=== PATIENT | female | born 1970 | race African-American/Black ===

== ENCOUNTER 2017-11-21 02:05 | Emergency (ER) | payer OTHER ==
[~2017-11-21] VITALS: Ht 154.9 cm; Wt 72.6 kg
[2017-11-21] MEDS ORDERED: SODIUM CHLORIDE 0.9% 1,000 ML IV ONE (04:30)
[2017-11-21 04:52] LABS: Basophils # (auto) 0.1 uL; Basophils % (auto) 1.5 % (0.0-2.0); Eosinophils # (auto) 0.1 uL; Eosinophils % (auto) 2.2 % (0.0-7.0); Hematocrit 38.1 % (36.0-46.0); Hemoglobin 12.7 g/dL (12.2-16.2); Lymphocytes # (auto) 1.6 uL; Lymphocytes % (auto) 25.6 % (10.0-50.0); Mean Corpuscular Hemoglobin 27.6 pg (28.0-32.0); Mean Corpuscular Hgb Conc. 33.2 g/dL (32.0-36.0); Mean Corpuscular Volume 83.1 fL (80.0-100.0); Monocytes # (auto) 0.6 uL; Monocytes % (auto) 9.4 % (0.0-12.0); Neutrophils # (auto) 3.9 uL; Neutrophils % (auto) 61.3 % (37.0-80.0); Platelet Count (auto) 316 10^3/uL (140-450); Red Blood Cells 4.59 10^6/uL (4.0-5.20); Red Cell Distribution Width 14.9 % (11.8-14.3); White Blood Cell 6.4 10^3/uL (4.4-10.8)
[2017-11-21 05:18] LABS: Albumin 3.3 g/dL (3.4-5.0); BUN/Creatinine Ratio 11.4; Bilirubin, Total 0.1 mg/dL (0.2-1.0); Potassium 4.4 mmol/L (3.5-5.1); Total Protein 6.8 g/dL (6.4-8.2)
[2017-11-21 07:35] VITALS: BP 130/85
== END 2017-11-21 07:48 | disposition home or self-care (01) ==
LOC: EDBD 02:05 → ER 02:16
DX: I10 Essential (primary) hypertension (principal); E11.9 Type 2 diabetes mellitus without complications; R42 Dizziness and giddiness; R53.1 Weakness; Z88.0 Allergy status to penicillin
CPT/HCPCS: 36415; 80053; 85025; 96360; 96361; 99285; J7030

== ENCOUNTER 2021-10-01 18:15 | Emergency (ER) | payer OTHER ==
[~2021-10-01] VITALS: Ht 154.9 cm; Wt 86.2 kg
[2021-10-01] MEDS ORDERED: cloNIDine HCL 0.1 MG TAB PO ONE (19:00)
[2021-10-01] MEDS ORDERED: ONDANSETRON ODT 4 MG TAB PO ONE (19:30)
[2021-10-01 21:28] LABS: Basophils # (auto) 0.1 10 ^3/uL (0-0.2); Basophils % (auto) 1.4 % (0.0-2.0); Eosinophils # (auto) 0.1 10 ^3/uL (0-0.8); Eosinophils % (auto) 0.8 % (0.0-7.0); Hematocrit 41.5 % (36.0-46.0); Lymphocytes # (auto) 1.7 10 ^3/uL (0.4-5.4); Lymphocytes % (auto) 21.6 % (10.0-50.0); Mean Corpuscular Hemoglobin 28.6 pg (28.0-32.0); Mean Corpuscular Hgb Conc. 33.8 g/dL (32.0-36.0); Mean Corpuscular Volume 84.8 fL (80.0-100.0); Monocytes # (auto) 0.4 10 ^3/uL (0-1.3); Monocytes % (auto) 5.5 % (0.0-12.0); Neutrophils # (auto) 5.6 10 ^3/uL (1.6-8.6); Neutrophils % (auto) 70.7 % (37.0-80.0); Nucleated Red Blood Cells % 0.2 %; Red Blood Cells 4.89 10^6/uL (4.0-5.20); Red Cell Distribution Width 14.4 % (11.8-14.3)
[2021-10-01 21:40] LABS: Albumin 3.8 g/dL (3.4-5.0); Calcium 9.2 mg/dL (8.5-10.1); Potassium 4.2 mmol/L (3.5-5.1)
[2021-10-01 21:42] LABS: BUN/Creatinine Ratio 11.1
[2021-10-01 21:45] LABS: Bilirubin, Total 0.3 mg/dL (0.2-1.0); Total Protein 6.9 g/dL (6.4-8.2)
[2021-10-01] MEDS ORDERED: ACETAMINOPHEN 500 MG TAB PO ONE (22:45)
[2021-10-01 23:27] VITALS: BP 141/55
== END 2021-10-01 23:28 | disposition left against medical advice (07) ==
LOC: EDBD 18:15 → ER 18:16
DX: I16.0 Hypertensive urgency (principal); R51.9 Headache, unspecified; R11.2 Nausea with vomiting, unspecified; E78.5 Hyperlipidemia, unspecified; F17.210 Nicotine dependence, cigarettes, uncomplicated; Z88.0 Allergy status to penicillin; Z20.822 Contact with and (suspected) exposure to COVID-19
CPT/HCPCS: 36415; 80053; 85025; 87426; 93005; 99284; Q0162

== ENCOUNTER 2025-03-13 14:31 | Inpatient (IN) | payer MEDICAID, OTHER, SELFPAY ==
[~2025-03-13] VITALS: Ht 154.9 cm; Wt 97.9 kg
--- NOTE | 2025-03-13 14:54 | ED.PDOC ---
SOB-HPI HPI Comments This is a 54 year old female presenting to the ED with chief complaint of SOB. Patient reports that she has been experiencing SOB with associated dizzy spells and right shoulder pain for the past 3 days. Patient relays that she recently quit cigarettes 2 months ago. Patient denies any chest pain, fever, chills, cough, N/V, headache, or hemoptysis. Time Seen by MD: 14:47 Primary Care Provider: YARI Reviewed notes: Nurses Notes, Medications, Allergies Information Source: Patient Mode of Arrival: Ambulatory Severity: Moderate Timing: Days Duration: Since onset Context: At Rest PE Risk Factors: None History of: None Prehospital treatment: None Modifying Factors: Nothing Associated Signs and Symptoms: None Past Medical History PAST MEDICAL HISTORY: High Lipids, HTN Past Medical History (Other): Prediabetes Surgical History: AIRPLANE TECHNICIAN History: Uterine Fibroids Family History Family History: Reviewed,noncontributory to illness, Family hx of DM, Family hx of Cancer Social History Smoker: Cigarettes Alcohol: Occasionally Drugs: Marijuana Lives In: Home Constitutional: denies: chills, diaphoresis, fatigue, fever, malaise, sweats, weakness, others EENTM: denies: blurred vision, double vision, ear bleeding, ear discharge, ear drainage, ear pain, ear ringing, eye pain, eye redness, hearing loss, mouth pain, mouth swelling, nasal discharge, nose bleeding, nose congestion, nose pain, photophobia, tearing, throat pain, throat swelling, voice changes, others Respiratory: reports: shortness of breath; denies: cough, hemoptysis, orthopnea, SOB at rest, SOB with excertion, stridor, wheezing, others Cardiovascular: reports: dizzy spells; denies: chest pain, diaphoresis, Dyspnea on exertion, edema, irregular heart beat, left arm pain, lightheadedness, palpitations, PND, syncope, others Gastrointestinal: denies: abdomen distended, abdominal pain, blood streaked bowels, constipated, diarrhea, dysphagia, difficulty swallowing, hematemesis, melena, nausea, poor appetite, poor fluid intake, rectal bleeding, rectal pain, vomiting, others Genitourinary: denies: abnormal vagina bleeding, burning, dyspareunia, dysuria, flank pain, frequency, hematuria, incontinence, pain, , vagina discharge, urgency, others Neurological: denies: dizziness, fainting, headache, left sided numbness, left sided weakness, numbness, paresthesia, pre-existing deficit, right sided numbness, right sided weakness, seizure, speech problems, tingling, tremors, weakness, others Musculoskeletal: reports: others (Rt shoulder pain); denies: back pain, gout, joint pain, joint swelling, muscle pain, muscle stiffness, neck pain Integumetry: denies: bruises, change in color, change in hair/nails, dryness, laceration, lesions, lumps, rash, wounds, others Allergic/Immunocompromised: denies: Difficulty Healing, Frequent Infections, Hives, Itching, others Hematologic/Lymphatic: denies: anemia, blood clots, easy bleeding, easy bruising, swollen glands, others Endocrine: denies: excessive hunger, excessive sweating, excessive thirst, excessive urination, flushing, intolerance to cold, intolerance to heat, unexplained weight gain, unexplained weight loss, others Psychiatric: denies: anxiety, bipolar disorder, depression, hopeless, panic disorder, schizophrenia, sleepless, suicidal, others All Other Systems: Reviewed and Negative Physical Exam General Appearance: Moderate Distress HEENT: Normal ENT Inspection, Pharynx Normal, TMs Normal Neck: Full Range of Motion, Non-Tender, Normal, Normal Inspection Respiratory: Chest Non-Tender, Decreased Breath Sounds, Lungs Clear, No Accessory Muscle Use, Respiratory Distress Cardiovascular: No Edema, No JVD, No Murmur, No Gallop, Normal Peripheral Pulses, Regular Rate/Rhythm Breast Exam: Deferred Gastrointestinal: No Organomegaly, Non Tender, No Pulsatile Mass, Normal Bowel Sounds, Soft Genitalia: Deferred Pelvic: Deferred Rectal: Deferred Extremities: No calf tenderness, Normal capillary refill, Normal inspection, Normal range of motion, Non-tender, No pedal edema Musculoskeletal : Apperance: Normal Neurologic: Alert, lime burner II-XII nml as Tested, No Motor Deficits, Normal Affect, Normal Mood, No Sensory Deficits Cerebellar Function: Normal Reflexes: Normal Skin: Dry, Normal Color, Warm Lymphatic: No Adenopathy Was a procedure done? Was a procedure done?: No Differential Dx Differential Diagnosis: Asthma, Bronchitis, CHF, Pneumonia X-Ray, Labs, Meds, VS Vital Signs Date Time Temp Pulse Resp B/P (MAP) Pulse Ox O2 Delivery O2 Flow Rate FiO2 03/13/25 15:14 78 03/13/25 14:48 97.8 87 18 123/92 (102) 99 97.8 Lab Test 03/13/25 15:38 03/13/25 15:08 03/13/25 14:27 Range/Units Troponin I High Sensitivity 3 L 3 L </=34 ng/L Urine Color Yellow Yellow Urine Clarity Turbid H Clear Urine pH 6.0 5.0-9.0 Urine Specific [place] 1.024 1.001-1.035 Urine Protein Trace H Negative Urine Ketones Negative Negative Urine Blood Negative Negative /uL Urine Nitrite Negative Negative Urine Bilirubin Negative Negative Urine Urobilinogen Normal Negative mg/dL Urine Leukocyte Esterase Negative Negative /uL Urine RBC 1 0 - 4 /hpf Urine Microscopic WBC 4 0-5 /HPF Urine Squamous Epithelial Cells Mod <5 /hpf Urine Bacteria Few H None Seen /hpf Urine Mucus Few None Seen Urine Glucose Normal Normal mg/dL White Blood Count 6.0 4.4-10.8 10^3/uL Red Blood Count 5.22 H 4.0-5.20 10^6/uL Hemoglobin 14.6 12.2-16.2 g/dL Hematocrit 42.5 36.0-46.0 % Mean Corpuscular Volume 81.4 80.0-100.0 fL Mean Corpuscular Hemoglobin 27.9 L 28.0-32.0 pg Mean Corpuscular Hemoglobin Concent 34.3 32.0-36.0 g/dL Red Cell Distribution Width 14.7 H 11.8-14.3 % Platelet Count 360 140-450 10^3/uL Mean Platelet Volume 8.2 6.9-10.8 fL Neutrophils (%) (Auto) 56.3 37.0-80.0 % Lymphocytes (%) (Auto) 32.4 10.0-50.0 % Monocytes (%) (Auto) 7.8 0.0-12.0 % Eosinophils (%) (Auto) 2.6 0.0-7.0 % Basophils (%) (Auto) 0.9 0.0-2.0 % Neutrophils # (Auto) 3.4 1.6-8.6 10 ^3/uL Lymphocytes # (Auto) 1.9 0.4-5.4 10 ^3/uL Monocytes # (Auto) 0.5 0-1.3 10 ^3/uL Eosinophils # (Auto) 0.2 0-0.8 10 ^3/uL Basophils # (Auto) 0.1 0-0.2 10 ^3/uL Nucleated Red Blood Cells 0.0 % D-Dimer, Quantitative < 0.19 0.0-0.49 mg/L FEU Sodium Level 143 136-145 mmol/L Potassium Level 2.9 L 3.5-5.1 mmol/L Chloride Level 100 98-107 mmol/L Carbon Dioxide Level 33 H 20-31 mmol/L Anion Gap 10 5-15 Blood Urea Nitrogen 9 9-23 mg/dL Creatinine 0.82 0.550-1.02 mg/dL Glomerular Filtration Rate Calc 85 >90 mL/min BUN/Creatinine Ratio 11.0 10.0-20.0 Serum Glucose 101 74-106 mg/dL Calcium Level 10.5 H 8.7-10.4 mg/dL The patient's CBC is within normal limits The patient's CBC is within normal limits The chemistry panel is within normal limits The D-dimer is negative The urine test is negative The chest x-ray shows pulmonary vascular congestion The patient was given Lasix 40 mg IV push The patient is being admitted at this time Images Reviewed?: Images reviewed and evaluated by me Time of 1ST Reevaluation: 18:11 Reevaluation 1ST: Unchanged Patient Education/Counseling: Diagnosis, Treatment, Prognosis Family Education/Counseling: No Family Present Additional Information Reviewed patient's previous visit(s): 10/01/21 for headache The following tests were ordered, and results were reviewed by me: CBC, BMP, Troponin, D-Dimer, EKG, Chest XR Additional information was gathered from interviewing the following independent historian: None I reviewed and agreed with the following test results read by other provider: Chest XR I discussed treatments and results with medical personnel and: PATIENT Comprehensive systems review obtained and negative except for what is stated in the HPI. SEPSIS Sepsis Screen Physician Orders Chest Two Views Routine (03/13/25 14:43) Electrocardigram (03/13/25 17:43) Heplock Iv (03/13/25 16:33) Vital Signs Date Time Temp Pulse Resp B/P (MAP) Pulse Ox O2 Delivery O2 Flow Rate FiO2 03/13/25 15:14 78 03/13/25 14:48 97.8 87 18 123/92 (102) 99 97.8 Laboratory Tests Test 03/13/25 14:27 White Blood Count 6.0 10^3/uL (4.4-10.8) Departure 1 Departure Time of Disposition: 18:10 Impression: Primary Impression: Pulmonary vascular congestion Additional Impression: Shortness of breath Disposition: 09 ADMITTED INPATIENT Admit to: Tele Condition: Fair Critical Care Note Critical Care Time?: Yes (35 min-critical care time only) Stability Stability form required: Yes Unstable for transfer: Telemetry monitoring (Telemetry monitoring required), ED Physician Assesment (Clinical assesment) Heart Score Heart Score: Heart Score Response (Comments) Value History N/A 0 EKG N/A 0 Age N/A 0 Risk Factors N/A 0 Troponin N/A 0 Total 0 I personally scribed for CHANDU MUELLER MD ([email or web address]) on 03/13/25 at 14:54. Electronically submitted by Baldev Guardado ([email or web address]). CHANDU MUELLER MD Mar 13, 2025 14:54
[2025-03-13 15:12] LABS: Basophils # (auto) 0.1 10 ^3/uL (0-0.2); Basophils % (auto) 0.9 % (0.0-2.0); Eosinophils # (auto) 0.2 10 ^3/uL (0-0.8); Eosinophils % (auto) 2.6 % (0.0-7.0); Hematocrit 42.5 % (36.0-46.0); Hemoglobin 14.6 g/dL (12.2-16.2); Lymphocytes # (auto) 1.9 10 ^3/uL (0.4-5.4); Lymphocytes % (auto) 32.4 % (10.0-50.0); Mean Corpuscular Hemoglobin 27.9 pg (28.0-32.0); Mean Corpuscular Hgb Conc. 34.3 g/dL (32.0-36.0); Mean Corpuscular Volume 81.4 fL (80.0-100.0); Monocytes # (auto) 0.5 10 ^3/uL (0-1.3); Monocytes % (auto) 7.8 % (0.0-12.0); Neutrophils # (auto) 3.4 10 ^3/uL (1.6-8.6); Neutrophils % (auto) 56.3 % (37.0-80.0); Platelet Count (auto) 360 10^3/uL (140-450); Red Blood Cells 5.22 10^6/uL (4.0-5.20); Red Cell Distribution Width 14.7 % (11.8-14.3)
--- NOTE | 2025-03-13 15:14 | DVH ---
CHEST RADIOGRAPH Indication: sob Technique: 2 views of the chest COMPARISON: None FINDINGS: The cardiac silhouette is unremarkable. The lungs demonstrate no pulmonary airspace consolidation. Th e pulmonary vasculature is prominent. There is no pleural effusion.. There is no pneumothorax. IMPRESSION: Mild pulmonary vascular congestion
--- NOTE | 2025-03-13 15:15 | ECG ---
[facility] Test Date: 2025-03-13 Test Time: 15:14:29 Pat Name: NICOLE THOMPSON Department: ER Room: [address] [place] [address] Gender: F Oracle Etl Developer: ANNABEL : 1970 Requested By: CHANDU MUELLER Order Number: [id number] Reading MD: Israel Chavez Measurements Intervals [place] Rate: 78 P: 67 AK: 133 QRS: 75 QRSD: 88 T: 30 QT: 383 QTc: 437 Interpretive Statements Sinus rhythm Electronically Signed On 03-16-2025 20:00:16 PDT by Israel Chavez Please click the below link to view image of tracing.
[2025-03-13 15:19] LABS: Chloride 100 mmol/L (98-107); Sodium 143 mmol/L (136-145)
[2025-03-13 15:20] LABS: Anion Gap 10 (5-15)
[2025-03-13 15:21] LABS: Calcium 10.5 mg/dL (8.7-10.4); Carbon Dioxide 33 mmol/L (20-31); Potassium 2.9 mmol/L (3.5-5.1)
[2025-03-13 15:25] LABS: Blood Urea Nitrogen 9 mg/dL (9-23); Glucose 101 mg/dL (74-106)
[2025-03-13 16:09] LABS: Urine Bacteria FEW /hpf (None Seen); Urine Blood Negative /uL (Negative); Urine Clarity Turbid (Clear); Urine Color Yellow (Yellow); Urine Mucus FEW (None Seen); Urine Protein, UAD TRACE (Negative); Urine Specific Gravity 1.024 (1.001-1.035); Urine Squamous Epithelial Cell MOD /hpf (<5); Urine Urobilinogen Normal (Negative); Urine WBC 4 /HPF (0-5)
--- NOTE | 2025-03-13 16:27 | ECG ---
[facility] Test Date: 2025-03-13 Test Time: 15:19:28 Pat Name: NICOLE THOMPSON Department: ER Room: [address] [place] [address] Gender: F Crew Leader/Control Room Operator: ANNABEL : 1970 Requested By: CHANDU MUELLER Order Number: [id number] Reading MD: Israel Chavez Measurements Intervals [place] Rate: 87 P: 75 AR: 152 QRS: 71 QRSD: 89 T: 34 QT: 352 QTc: 424 Interpretive Statements Sinus rhythm Right atrial enlargement Abnormal R-wave progression, early transition Electronically Signed On 03-16-2025 20:00:35 PDT by Israel Chavez Please click the below link to view image of tracing.
[2025-03-13] MEDS: FUROSEMIDE 40 MG/4 ML VIAL IV ONE (20:35)
[2025-03-13] MEDS: POTASSIUM CHL 20MEQ/100ML 100 ML IV ONE (21:00)
[2025-03-13] MEDS: POTASSIUM CHL 20 Meq TABLET PO ONE (21:15)
[2025-03-13] MEDS: hydrALAZINE HCL 20 MG/ML VL IV ONE (22:15)
[2025-03-13] MEDS: LOSARTAN POTASSIUM 50 MG TAB PO ONE (22:15)
[2025-03-13] MEDS ORDERED: MORPHINE SULFATE INJ 2 MG/ml SYRG IV PRN (22:15)
[2025-03-13] MEDS ORDERED: NITROGLYCERIN 0.4 MG SL TAB SL PRN (22:15)
--- NOTE | 2025-03-13 22:53 | DVH ---
EXAM: CT HEAD WITHOUT CONTRAST INDICATION: r/o acute stroke TECHNIQUE: CT of the head without intravenous contrast. Radiation Dose : 1. Head: CT Dose: CTDI volume is 59 mGy. Dose-length product is 1169 mGy*cm The dose indicators for CT are the volume Computed Tomography (CT) Dose Index (CTDIvol) and the Dose Length Product (DLP), and are measured in units of mGy and mGy-cm, respectively. These indicators are not patient dose, but values generated from the CT scanner acquisition factors. The report includes radiation exposure data for exposures received during this examination. COMPARISON: None FINDINGS: There is no evidence of acute intracranial hemorrhage, extra-axial collection, mass effect, midline s hift, herniation or hydrocephalus. The ventricles, sulci and cisterns are age appropriate. The ordonez-white differentiation is intact. Patchy periventricular and subcortical white matter hypoattenuation is nonspecific but may be related to small vessel ischemic disease. The visualized paranasal sinuses and mastoid air cells are clear. The surrounding soft tissues and osseous structures are unremarkable. IMPRESSION: 1. No acute intracranial abnormality. Radiation optimization: All CT scans at this facility use at least one of these dose optimization mauri hniques: automated exposure control mA and/or kV adjustment per patient size (includes targeted exam s where dose is matched to clinical indication) or iterative reconstruction.
[2025-03-13 23:41] LABS: Protein, Urine 31.6 mg/dL (1-14)
[2025-03-13 23:43] LABS: Amphetamine Screen, Urine Neg (NEGATIVE)
[2025-03-13 23:44] LABS: Cannabinoid Screen, Urine Pos (NEGATIVE)
[2025-03-13 23:48] LABS: Barbiturate Scree,Urine Neg (NEGATIVE); Benzodiazephine Screen, Urine Neg (NEGATIVE); Cocaine Screen, Urine Neg (NEGATIVE); Opiate Scree,Urine Neg (NEGATIVE); Phencyclidine Screen, Urine Neg (NEGATIVE)
[2025-03-13 23:52] LABS: Urine Protein/Creatinine Ratio 0.11
[2025-03-13 23:57] LABS: Creatinine, Urine 289.75 mg/dL (30.0-125.0)
[2025-03-14] VITALS (10 sets, daily range): BP systolic 106–170; BP diastolic 45–85; PULSE 56–74; RESP 16–18; TEMP 97.2–98.2; O2SAT 96–100
[2025-03-14] MEDS ORDERED: hydrALAZINE HCL 20 MG/ML VL IV PRN (01:45)
--- NOTE | 2025-03-14 01:48 | DVHHPRES ---
History of Present Illness Resident Creating Document: JHAJFABIAN BermudezCONY RESIDENT History of Present Illness Patient is a 54-year-old female with a past medical history of hypertension presented to the ED with a chief complaint of worsening dizziness for the last 3 days. Patient reported that since the last 3-4 days has worsening episode of dizziness whenever she gets up from the lying down position to standing with a sensation of room spinning. Patient also reported shortness of breath in the last 3 days but denied any orthopnea. Patient snores at night. Patient denied any chest pain, headache, blurred vision while at home. Patient reports that he was diagnosed with a hypertension after the delivery of her daughter in 2005. On admission patient's blood pressure within normal limits. Orthostatic vitals did not show orthostatic hypotension. Initial ECG showed sinus rhythm without any significant ST or T-wave changes. Troponin levels were within normal limits Past medical history: Hypertension Surgical history: x2 Social history: Patient has a history of smoking 4-5 cigarettes with the last 18-20 years, occasional alcohol use, smokes marijuana every night before sleeping Family history: Multiple family members with hypertension but denied any history of coronary artery disease or ND Home medications: Amlodipine 5 mg, metoprolol tartrate 50 b.i.d., losartan 50 mg, hydrochlorothiazide 25 mg Review of Systems Review of Systems Patient seen and examined at the bedside Reports of dizziness when she gets up from the sitting position Denies headache, chest pain, shortness of breath Allergies: Coded Allergies: Penicillins (Verified Allergy, Unknown, 11/21/17) Medications Current Medications Medications Dose Ordered Sig/Angelica Route Start Time Stop Time Status Last Admin Dose Admin Nitroglycerin 0.4 mg Q5MINP PRN SL 03/13/25 22:15 Morphine Sulfate 2 mg Q30M PRN IV 03/13/25 22:15 Amlodipine Besylate 5 mg DAILY PO 03/14/25 10:00 Losartan Potassium 50 mg DAILY PO 03/14/25 10:00 Hydrochlorothiazide 25 mg DAILY PO 03/14/25 10:00 Exam Vital Signs Vital Signs Date Time Temp Pulse Resp B/P (MAP) Pulse Ox O2 Delivery O2 Flow Rate FiO2 03/14/25 00:43 97.7 60 18 170/85 (113) 99 97.7 03/13/25 20:10 Room Air* 0 21 Exam Gen - no pallor, no icterus, no cyanosis, no clubbing, no LAD, no edema . Skin - Patients skin is warm and dry. HEENT - normocephalic, atraumatic, moist mucous membranes. Neck - full ROM, no LAD, no JVD Pulmonary - B/L equal breath sounds, no crackles, no wheezing, no stridor. cardiovascular - regular S1,S2 heard, no added sounds, no murmurs heard. peripheral pulses normal radial 2+, pedal 2+. capillary refill normal <2 secs. GI - soft, nontender abdomen. no hepatospleenomegaly. Bowel sounds normoactive Neurological - Patient is A/O X 3 . Bilateral upper extremity strength 5/5, bilateral lower extremity strength 5/5, no facial droop, normal speech, no tremor, no sensory deficiets. Labs/Xrays Labs Test 03/13/25 15:38 03/13/25 15:08 03/13/25 14:27 Range/Units Troponin I High Sensitivity 3 L </=34 ng/L Urine Color Yellow Yellow Urine Clarity Turbid H Clear Urine pH 6.0 5.0-9.0 Urine Specific [place] 1.024 1.001-1.035 Urine Protein Trace H Negative Urine Ketones Negative Negative Urine Blood Negative Negative /uL Urine Nitrite Negative Negative Urine Bilirubin Negative Negative Urine Urobilinogen Normal Negative mg/dL Urine Leukocyte Esterase Negative Negative /uL Urine RBC 1 0 - 4 /hpf Urine Microscopic WBC 4 0-5 /HPF Urine Squamous Epithelial Cells Mod <5 /hpf Urine Bacteria Few H None Seen /hpf Urine Mucus Few None Seen Urine Creatinine 289.75 H 30.0-125.0 mg/dL Urine Protein/Creatinine Ratio 0.11 Urine Glucose Normal Normal mg/dL Urine Total Protein 31.6 H 1-14 mg/dL Urine Test Negative Negative Urine Opiates Screen Neg NEGATIVE Urine Fentanyl Screen Neg NEGATIVE Urine Barbiturates Screen Neg NEGATIVE Urine Phencyclidine Screen Neg NEGATIVE Urine Amphetamines Screen Neg NEGATIVE Urine Benzodiazepines Screen Neg NEGATIVE Urine Cocaine Screen Neg NEGATIVE Urine Cannabinoids Screen Pos NEGATIVE White Blood Count 6.0 4.4-10.8 10^3/uL Red Blood Count 5.22 H 4.0-5.20 10^6/uL Hemoglobin 14.6 12.2-16.2 g/dL Hematocrit 42.5 36.0-46.0 % Mean Corpuscular Volume 81.4 80.0-100.0 fL Mean Corpuscular Hemoglobin 27.9 L 28.0-32.0 pg Mean Corpuscular Hemoglobin Concent 34.3 32.0-36.0 g/dL Red Cell Distribution Width 14.7 H 11.8-14.3 % Platelet Count 360 140-450 10^3/uL Mean Platelet Volume 8.2 6.9-10.8 fL Neutrophils (%) (Auto) 56.3 37.0-80.0 % Lymphocytes (%) (Auto) 32.4 10.0-50.0 % Monocytes (%) (Auto) 7.8 0.0-12.0 % Eosinophils (%) (Auto) 2.6 0.0-7.0 % Basophils (%) (Auto) 0.9 0.0-2.0 % Neutrophils # (Auto) 3.4 1.6-8.6 10 ^3/uL Lymphocytes # (Auto) 1.9 0.4-5.4 10 ^3/uL Monocytes # (Auto) 0.5 0-1.3 10 ^3/uL Eosinophils # (Auto) 0.2 0-0.8 10 ^3/uL Basophils # (Auto) 0.1 0-0.2 10 ^3/uL Nucleated Red Blood Cells 0.0 % D-Dimer, Quantitative < 0.19 0.0-0.49 mg/L FEU Sodium Level 143 136-145 mmol/L Potassium Level 2.9 L 3.5-5.1 mmol/L Chloride Level 100 98-107 mmol/L Carbon Dioxide Level 33 H 20-31 mmol/L Anion Gap 10 5-15 Blood Urea Nitrogen 9 9-23 mg/dL Creatinine 0.82 0.550-1.02 mg/dL Glomerular Filtration Rate Calc 85 >90 mL/min BUN/Creatinine Ratio 11.0 10.0-20.0 Serum Glucose 101 74-106 mg/dL Calcium Level 10.5 H 8.7-10.4 mg/dL Assessment/Plan Assessment/Plan Dizziness Rule out acute stroke Possible BPPV Possible Orthostatic hypotension - head CT without contrast shows no acute intracranial abnormality - carotid Doppler pending Uncontrolled hypertension Rule out secondary causes of hypertension - renal arterial Doppler pending - cortisol a.m. levels - possible sleep apnea, stop Bang score 4-5 points - continued on amlodipine, losartan, hydrochlorothiazide - hydralazine PRN Hypokalemia Proteinurea likely from underlying hypertensive nephropathy - protein to creatinine ratio normal - monitor kidney function - potassium replaced PUD prophylaxis: Famotidine Goals of care discussed with the patient for over 19 minutes. Full code Time spent: 37 minute Plan discussed with Dr. Lieberman Plan discussed with: Patient My Orders Orders - JAM LARA RESIDENT Procedure Category Date Status Time Admit ADMIT 03/13/25 Transmitted 22:04 Nitroglycerin PHA 03/13/25 In Process Sublingual (Ntrostat 22:15 Morphine Sulfate PHA 03/13/25 In Process Injection 22:15 Oxygen By Nasal RT 03/13/25 Transmitted Cannula 22:04 Stat Ekg For Chest ELI 03/13/25 In Process Pain 22:04 Notify Md Of Changes ELI 03/13/25 In Process From Base 22:04 Quality Lead For ELI 03/13/25 In Process 24 Hours 22:04 Emergency Dysrhythmia ELI 03/13/25 In Process Protocol 22:[address] 03/13/25 Resulted 22:04 Amlodipine Tablet PHA 03/14/25 In Process (Norvasc Tablet) 10:00 Losartan Tablet PHA 03/14/25 In Process (Cozaar Tablet) 10:00 Hydrochlorothiazide PHA 03/14/25 In Process Tablet (Hydrochlorot 10:00 Echo 2d Mode Cardiac US 03/13/25 Logged DOP 22:04 Renal Artery Lmtd US 03/13/25 Taken 22:04 Cortisol Am LAB 03/14/25 Logged 08:00 Complete Blood Count LAB 03/14/25 Logged 04:00 Comprehensive LAB 03/14/25 Logged Metabolic Panel 04:00 Carotid Duplx W Color US 03/13/25 Taken DOP 22:04 Cardiac DIET 03/14/25 Transmitted Diet-2gna,Lofat,Lochol Breakfast Date of Service: Mar 13, 2025 Billing Provider: ALY LIEBERMAN MD Common Visit Codes: 26441-[id number] INP/OBS CARE (HIGH) Secondary Visit Codes: [id number]-[id number] CARE PLAN 30 MINUTES JAM LARA RESIDENT Mar 14, 2025 01:48
--- NOTE | 2025-03-14 05:06 | DVH ---
Carotid Duplex Clinical History: R/o carotid stenosis Comparison: None Technique: Duplex Doppler evaluation of the extracranial carotid and vertebral arteries including color Doppler and spectral/pulsed waveform analysis was performed. Findings: RIGHT SIDE: The peak systolic velocities are 61 cm/s in the CCA, 89 cm/s in the ICA. The ICA/CCA ratio is 1.4. The external carotid artery is patent with peak systolic velocity of 132 cm/s proximally. The subclavian artery is patent with peak systolic velocity of n/a cm/s. There is appropriate antegrade flow in the right vertebral artery. LEFT SIDE: The peak systolic velocities are 79 cm/s in the CCA, 116 cm/s in the ICA. The ICA/CCA ratio is 1.5. The external carotid artery is patent with peak systolic velocity of 89 cm/s proximally. The subclavian artery is patent with peak systolic velocity of n/a cm/s. There is appropriate antegrade flow in the left vertebral artery. IMPRESSION: No hemodynamically significant stenosis noted in the right carotid system. No hemodynamically significant stenosis noted in the left carotid system. Reference: Radiology 2003; 229:340-346 Normal ICA PSV is <125 cm/sec and no plaque or intimal thickening is visible sonographically addition al criteria include ICA/CCA PSV ratio <2.0 and ICA EDV <40 cm/sec <50% ICA stenosis ICA PSV is <125 cm/sec and plaque or intimal thickening is visible sonographically additional criteria include ICA/CCA PSV ratio <2.0 and ICA EDV <40 cm/sec 50-69% ICA stenosis ICA PSV is 125-230 cm/sec and plaque is visible sonographically additional criter ia include ICA/CCA PSV ratio of 2.0-4.0 and ICA EDV of 40-100 cm/sec 70% ICA stenosis but less than near occlusion ICA PSV is >230 cm/sec and visible plaque and luminal narrowing are seen at ordonez-scale and color Doppler ultrasound (the higher the Doppler parameters lie above the threshold of 230 cm/sec, the greater the likelihood of severe disease) additional criteria include ICA/CCA PSV ratio >4 and ICA EDV >100 cm/sec
--- NOTE | 2025-03-14 05:08 | DVH ---
INDICATION: r/o renal artery stenosis, B/L TECHNIQUE: Multiple real-time sonographic images of the kidneys and bladder were obtained. Duplex Doppler evaluation including color Doppler and spectral/pulsed waveform analysis of the bilate ral renal arteries was performed. COMPARISON: None FINDINGS: The right kidney measures 10.3 cm in length. The right renal echogenicity, contour and cortical thick ness are within normal limits. No hydronephrosis or large masses/calculi are seen. The left kidney measures 10.6 cm in length. The left renal echogenicity, contour, and cortical thickn ess are within normal limits. No hydronephrosis or large masses/calculi are seen. Aorta peak systolic velocity, 27 cm/s Right renal artery peak systolic velocity, 83 cm/s (< 180 cm/s = normal). Left renal artery peak systolic velocity 80 cm/s (< 180 cm/s = normal). Right RAR : 3.1 (< 3.5, normal) Left RAR 2.9 (< 3.5, normal) Right RI: 0.7 (< 0.75, normal) Left RI: 0.6 (< 0.75, normal) IMPRESSION: No findings to suggest renal artery stenosis. *Jennifer Mason Techniques in Noninvasive Vascular Diagnosis 2001
[2025-03-14 08:11] LABS: Basophils # (auto) 0.1 10 ^3/uL (0-0.2); Eosinophils # (auto) 0.2 10 ^3/uL (0-0.8); Eosinophils % (auto) 3.2 % (0.0-7.0); Hematocrit 40.4 % (36.0-46.0); Hemoglobin 13.8 g/dL (12.2-16.2); Lymphocytes # (auto) 2.3 10 ^3/uL (0.4-5.4); Lymphocytes % (auto) 34.6 % (10.0-50.0); Mean Corpuscular Hemoglobin 28.9 pg (28.0-32.0); Mean Corpuscular Hgb Conc. 34.3 g/dL (32.0-36.0); Mean Corpuscular Volume 84.3 fL (80.0-100.0); Monocytes # (auto) 0.6 10 ^3/uL (0-1.3); Monocytes % (auto) 8.5 % (0.0-12.0); Neutrophils # (auto) 3.5 10 ^3/uL (1.6-8.6); Neutrophils % (auto) 52.7 % (37.0-80.0); Nucleated Red Blood Cells % 0.1 %; Platelet Count (auto) 191 10^3/uL (140-450); Red Blood Cells 4.79 10^6/uL (4.0-5.20); Red Cell Distribution Width 14.6 % (11.8-14.3); White Blood Cell 6.7 10^3/uL (4.4-10.8)
[2025-03-14 08:23] LABS: Alanine Aminotransferase 11 U/L (7-40); Albumin 4.2 g/dL (3.2-4.8); Alkaline Phosphatase 86 U/L (46-116); Anion Gap 10 (5-15); Aspartate Aminotransferase 11 U/L (<34); BUN/Creatinine Ratio 15.1 (10.0-20.0); Blood Urea Nitrogen 11 mg/dL (9-23); Carbon Dioxide 29 mmol/L (20-31); Chloride 102 mmol/L (98-107); Glucose 91 mg/dL (74-106); Sodium 141 mmol/L (136-145); Total Protein 6.1 g/dL (5.7-8.2)
[2025-03-14 08:24] LABS: Bilirubin, Total 0.3 mg/dL (0.2-1.0); Potassium 3.3 mmol/L (3.5-5.1)
[2025-03-14] MEDS: FAMOTIDINE 20 MG TAB PO SCH (08:52)
[2025-03-14] MEDS: LOSARTAN POTASSIUM 50 MG TAB PO SCH (08:52)
[2025-03-14] MEDS: amLODIPine BESYLATE 5 MG TAB PO SCH (08:53)
[2025-03-14] MEDS: hydroCHLOROthiazide 25 MG TAB PO SCH (08:53)
--- NOTE | 2025-03-14 14:30 | DVHPN2 ---
Subjective Continues having dizziness only with standing. Otherwise doing well. Reviewed: H&P Changes from previous H/P or p: No Changes General: Per HPI Objective Vitals Vital Signs Date Time Temp Pulse Resp B/P (MAP) Pulse Ox O2 Delivery O2 Flow Rate FiO2 03/14/25 13:46 97.2 65 18 137/71 (93) 99 97.2 03/14/25 02:59 Room Air* 0 21 Intake/Output Intake and Output 03/14/25 06:59 Intake Total 500 ml Balance 500 ml Intake Oral 500 ml Exam GEN: Healthy appearing, well-developed, NAD. HEENT: NC/AT; MMM. CV: RRR, no m/r/g. LUNGS: CTAB, no w/r/c. ABD: Soft, NT/ND, NBS, no masses or organomegaly. EXT: skin Warm, well perfused. no rashes. No clubbing, cyanosis, or edema. NEURO: Ambulating with no limitations. No focal deficits. Medications Current Medications Medications Dose Ordered Sig/Angelica Route Start Time Stop Time Status Last Admin Dose Admin Nitroglycerin 0.4 mg Q5MINP PRN SL 03/13/25 22:15 Morphine Sulfate 2 mg Q30M PRN IV 03/13/25 22:15 Amlodipine Besylate 5 mg DAILY PO 03/14/25 10:00 03/14/25 08:53 5 MG Losartan Potassium 50 mg DAILY PO 03/14/25 10:00 03/14/25 08:52 50 MG Hydrochlorothiazide 25 mg DAILY PO 03/14/25 10:00 03/14/25 08:53 25 MG Hydralazine HCl 10 mg Q6HP PRN IV 03/14/25 01:45 Famotidine 20 mg DAILY PO 03/14/25 10:00 03/14/25 08:52 20 MG Laboratory Results Laboratory Tests 03/14/25 07:29 Chemistry Test 03/14/25 07:29 Albumin 4.2 g/dL (3.2-4.8) Calcium Level 10.0 mg/dL (8.7-10.4) Total Protein 6.1 g/dL (5.7-8.2) LFT Test 03/14/25 07:29 Alanine Aminotransferase (ALT) 11 U/L (7-40) Alkaline Phosphatase 86 U/L (46-116) Aspartate Amino Transferase (AST) 11 U/L (<34) Total Bilirubin 0.3 mg/dL (0.2-1.0) Urinalysis Test 03/13/25 15:08 Urine Color Yellow (Yellow) Urine Clarity Turbid (Clear) H Urine pH 6.0 (5.0-9.0) Urine Specific [place] 1.024 (1.001-1.035) Urine Protein Trace (Negative) H Urine Ketones Negative (Negative) Urine Blood Negative /uL (Negative) Urine Nitrite Negative (Negative) Urine Bilirubin Negative (Negative) Urine Urobilinogen Normal mg/dL (Negative) Urine Leukocyte Esterase Negative /uL (Negative) Urine RBC 1 /hpf (0 - 4) Urine Microscopic WBC 4 /HPF (0-5) Urine Squamous Epithelial Cells Mod /hpf (<5) Urine Bacteria Few /hpf (None Seen) H Urine Mucus Few (None Seen) Urine Creatinine 289.75 mg/dL (30.0-125.0) H Urine Protein/Creatinine Ratio 0.11 Urine Glucose Normal mg/dL (Normal) Urine Total Protein 31.6 mg/dL (1-14) H Urine Test Negative (Negative) Labs and/or images reviewed: Labs reviewed by me, Image(s) reviewed by me Assessment/Plan Assessment/Plan 03/14 patient is still dizzy. Although looks comfortable resting. Her dizziness occurs when she stands up from resting. She has some hypokalemia and orthostatics are negative. We will continue neuro checks but is appearing less likely CVA. Patient takes multiple blood pressure medications in the home including losartan, metoprolol, hydrochlorothiazide, amlodipine,. There is concern for iatrogenic polypharmacy Presyncope, likely autonomic dysfunction dizziness due to above Orthostatic hypotension possible Peripheral vertigo possible Uncontrolled hypertension Hypokalemia Hypokalemia hypertension syndrome - continue home medications amlodipine, famotidine, hydrochlorothiazide, losartan - patient also takes metoprolol which we will holding right now - orthostatic hypotension test - telemetry - echocardiogram, - maintenance IV fluids Cardiac diet GI prophylaxis-tolerating p.o. DVT prophylaxis-ambulating Tele Full code Plan discussed with: Patient My Orders Orders - ÁNGEL VILLAREAL MD Procedure Category Date Status Time Potassium Effervesent PHA 03/14/25 Logged Tab (Klor-Con/Ef) 14:30 Date of Service: Mar 14, 2025 Billing Provider: ÁNGEL VILLAREAL MD Common Visit Codes: [id number] INP/OBS CARE(HIGH) ÁNGEL VILLAREAL MD Mar 14, 2025 14:30
[2025-03-14] MEDS: POTASSIUM EFFERVESENT TAB 25 MEQ PO ONE (15:32)
[2025-03-14] MEDS: IBUPROFEN 600 MG TAB PO PRN (16:40)
[2025-03-14] MEDS: diphenhdrAMINE HCL 25 MG CAP PO ONE (16:40)
[2025-03-15] VITALS (10 sets, daily range): BP systolic 111–150; BP diastolic 70–90; PULSE 64–112; RESP 17–18; TEMP 97.4–98.7; O2SAT 96–100
[2025-03-15 09:05] LABS: Chloride 101 mmol/L (98-107); Sodium 140 mmol/L (136-145)
[2025-03-15 09:06] LABS: Anion Gap 8 (5-15); Calcium 10.1 mg/dL (8.7-10.4); Carbon Dioxide 31 mmol/L (20-31)
[2025-03-15 09:11] LABS: BUN/Creatinine Ratio 12.5 (10.0-20.0); Blood Urea Nitrogen 9 mg/dL (9-23); Glucose 100 mg/dL (74-106)
[2025-03-15 09:17] LABS: Potassium 3.3 mmol/L (3.5-5.1)
[2025-03-15] MEDS: MECLIZINE HCL 25 MG TAB PO PRN (14:47)
[2025-03-15] MEDS: diphenhdrAMINE HCL 25 MG CAP PO PRN (14:47)
[2025-03-15] MEDS: POTASSIUM EFFERVESENT TAB 25 MEQ PO ONE (15:15)
--- NOTE | 2025-03-15 22:59 | DVHPN2 ---
Subjective Continues having dizziness only with standing. Otherwise doing well. Reviewed: H&P Changes from previous H/P or p: No Changes General: Per HPI Objective Vitals Vital Signs Date Time Temp Pulse Resp B/P (MAP) Pulse Ox O2 Delivery O2 Flow Rate FiO2 03/15/25 21:00 97.8 92 18 129/78 (95) 99 97.8 03/15/25 08:08 Room Air* 0 21 Intake/Output Intake and Output 03/15/25 07:00 Intake Total 600 ml Balance 600 ml Intake Oral 600 ml # Voids 1 Exam GEN: Healthy appearing, well-developed, NAD. HEENT: NC/AT; MMM. CV: RRR, no m/r/g. LUNGS: CTAB, no w/r/c. ABD: Soft, NT/ND, NBS, no masses or organomegaly. EXT: skin Warm, well perfused. no rashes. No clubbing, cyanosis, or edema. NEURO: Ambulating with no limitations. No focal deficits. [place]-Hallpike positive for left Medications Current Medications Medications Dose Ordered Sig/Angelica Route Start Time Stop Time Status Last Admin Dose Admin Nitroglycerin 0.4 mg Q5MINP PRN SL 03/13/25 22:15 Morphine Sulfate 2 mg Q30M PRN IV 03/13/25 22:15 Amlodipine Besylate 5 mg DAILY PO 03/14/25 10:00 03/15/25 09:23 5 MG Losartan Potassium 50 mg DAILY PO 03/14/25 10:00 03/15/25 09:23 50 MG Hydrochlorothiazide 25 mg DAILY PO 03/14/25 10:00 03/15/25 09:24 25 MG Hydralazine HCl 10 mg Q6HP PRN IV 03/14/25 01:45 Famotidine 20 mg DAILY PO 03/14/25 10:00 03/15/25 09:22 20 MG Ibuprofen 600 mg [id number] PRN PO 03/14/25 16:30 03/15/25 22:54 600 MG Meclizine HCl 25 mg Q6HPRN PRN PO 03/15/25 14:15 03/15/25 14:47 25 MG Diphenhydramine HCl 25 mg Q8HP PRN PO 03/15/25 14:15 03/15/25 22:54 25 MG Laboratory Results Laboratory Tests 03/14/25 07:29 03/15/25 08:47 Chemistry Test 03/15/25 08:47 Calcium Level 10.1 mg/dL (8.7-10.4) Urinalysis Test 03/13/25 15:08 Urine Color Yellow (Yellow) Urine Clarity Turbid (Clear) H Urine pH 6.0 (5.0-9.0) Urine Specific [place] 1.024 (1.001-1.035) Urine Protein Trace (Negative) H Urine Ketones Negative (Negative) Urine Blood Negative /uL (Negative) Urine Nitrite Negative (Negative) Urine Bilirubin Negative (Negative) Urine Urobilinogen Normal mg/dL (Negative) Urine Leukocyte Esterase Negative /uL (Negative) Urine RBC 1 /hpf (0 - 4) Urine Microscopic WBC 4 /HPF (0-5) Urine Squamous Epithelial Cells Mod /hpf (<5) Urine Bacteria Few /hpf (None Seen) H Urine Mucus Few (None Seen) Urine Creatinine 289.75 mg/dL (30.0-125.0) H Urine Protein/Creatinine Ratio 0.11 Urine Glucose Normal mg/dL (Normal) Urine Total Protein 31.6 mg/dL (1-14) H Urine Test Negative (Negative) Labs and/or images reviewed: Labs reviewed by me, Image(s) reviewed by me Assessment/Plan Assessment/Plan 03/14 patient is still dizzy. Although looks comfortable resting. Her dizziness occurs when she stands up from resting. She has some hypokalemia and orthostatics are negative. We will continue neuro checks but is appearing less likely CVA. Patient takes multiple blood pressure medications in the home including losartan, metoprolol, hydrochlorothiazide, amlodipine,. There is concern for iatrogenic polypharmacy 03/15-- orthostatics were negative. Patient is still feeling dizzy. Ho [place] K[place]- Hallpike maneuver done appears to be positive on the left. Patient continues to have hypokalemic hypertensive syndrome but blood pressure appears to have becoming more controlled with 3 medications. We will defer resistant hypotension workup outpatient unless further ongoing blood pressure control needed inpatient. Patient will be given trial of meclizine and trial of Tito maneuvers. Patient is educated on Tito maneuvers and we will trial b.i.d.. -Plan:: If blood pressure remains well controlled overnight, and nausea is resolving. Patient can likely be discharged tomorrow a.m. with continuing Tito maneuver at home with meclizine. And also needs to stay compliant with blood pressure medications hydrochlorothiazide losartan amlodipine to follow up with PCP with a blood pressure log. Echocardiogram has been done and can follow up the read with PCP Presyncope, likely autonomic dysfunction dizziness due to above Orthostatic hypotension possible Peripheral vertigo possible Uncontrolled hypertension Hypokalemia Hypokalemia hypertension syndrome - continue home medications amlodipine, famotidine, hydrochlorothiazide, losartan - patient also takes metoprolol which we will holding right now - orthostatic hypotension test - telemetry - echocardiogram, - maintenance IV fluids Cardiac diet GI prophylaxis-tolerating p.o. DVT prophylaxis-ambulating Tele Full code Plan discussed with: Patient My Orders Orders - ÁNGEL VILLAREAL MD Procedure Category Date Status Time Orthostatic Vital ORDERS 03/15/25 Transmitted Signs 12:50 Meclizine Tablet PHA 03/15/25 In Process (Antivert Tablet) 14:15 Diphenhdramine PHA 03/15/25 In Process Capsule (Benadryl 14:15 Date of Service: Mar 15, 2025 Billing Provider: ÁNGEL VILLAREAL MD Common Visit Codes: [id number] INP/OBS CARE(HIGH) ÁNGEL VILLAREAL MD Mar 15, 2025 22:59
[2025-03-16 01:00] VITALS: BP 126/80; PULSE 87; RESP 18; TEMP 97.8; O2SAT 96
[2025-03-16 05:00] VITALS: BP 120/75; PULSE 79; RESP 16; TEMP 97.8; O2SAT 99
[2025-03-16 06:57] LABS: Anion Gap 12 (5-15); Carbon Dioxide 28 mmol/L (20-31); Chloride 100 mmol/L (98-107); Sodium 140 mmol/L (136-145)
[2025-03-16 06:59] LABS: Calcium 9.5 mg/dL (8.7-10.4)
[2025-03-16 07:03] LABS: Glucose 98 mg/dL (74-106)
[2025-03-16 07:04] LABS: BUN/Creatinine Ratio 10.1 (10.0-20.0)
[2025-03-16 07:05] LABS: Blood Urea Nitrogen 8 mg/dL (9-23)
[2025-03-16 08:00] VITALS: PULSE 82
[2025-03-16 08:53] VITALS: BP 106/65; PULSE 80; RESP 16; TEMP 98; O2SAT 100
[2025-03-16 12:05] VITALS: BP 122/69; PULSE 87; RESP 16; TEMP 97.7; O2SAT 97
--- NOTE | 2025-03-17 01:04 | DVHSR ---
APPROVED REPORT EXAM: Two-dimensional and M-mode echocardiogram with Doppler and color Doppler. Blood Pressure: 106/45 mmHg INDICATION RUSB murmur RISK FACTORS Height: 5' 1", Weight: 195 DIMENSIONS LVDd4.4 (3.8-5.7cm)LA (2D)3.7 (1.9-4.0cm)Aortic Root2.8 (2.0-3.7cm) LVDs2.8 (2.5-4.0cm)LA (MM) (1.9-4.0cm)Aortic Cusp Exc1.5 (1.5-2.0cm) EF (%) 65.0 (55-70%)Rt. Atrium3.0 (1.9-4.0cm)Asc. Aorta cm IVSd1.1 (0.7-1.1cm)RV (D) (1.8-2.4cm) PWd1.1 (0.7-1.1cm) Mitral Valve MitralMitral Stenosis E wave1.10m/sMV Mean GR.mmHg A wave1.20m/sMV Peak GR.mmHg E/A ratio0.92D MVAcm2 Aortic Valve Aortic ValveAortic Stenosis V11.00m/Love Mean GR.9mmHg V22.10m/Love Peak GR.18mmHg LVOT Diameter2.1 (1.8-2.4cm)Doppler AVA1.65cm2 Pulmonic Valve V20.70m/s Tricuspid Valve TR Velocity2.30m/s [id number] Conclusion NORMAL LV EF AND IS 65% MODERATELY CALCIFIED AORTIC LEAFLETS AORTIC VALVE AREA IS 1.65 CM SQUARE BORDERLINE MILD AORTIC STENOSIS NORMAL MV,TV AND PV NO EFFUSION
== END 2025-03-16 16:01 | disposition home or self-care (01) | DRG 74 ==
LOC: ER 14:31 → OVERFLOW 22:04 → TELE-EAST 03-14 17:45
PROVIDERS: ADMIT Student in an Organized Health Care Education/Training Program; ATTEND Student in an Organized Health Care Education/Training Program
DX: G90.9 Disorder of the autonomic nervous system, unspecified (principal); I10 Essential (primary) hypertension; E87.6 Hypokalemia; F17.210 Nicotine dependence, cigarettes, uncomplicated; I95.1 Orthostatic hypotension; H81.399 Other peripheral vertigo, unspecified ear; R09.89 Other specified symptoms and signs involving the circulatory and respiratory systems; R42 Dizziness and giddiness
CPT/HCPCS: 36415; 70450; 71046; 80048; 80053; 80307; 81001; 81025; 82533; 82570; 84156; 84484; 85025; 85379; 93005; 93306; 93886; 93976; 99291; G0378